=== PATIENT | female | born 1960 | race American Indian/Alaskan Native ===

== ENCOUNTER 2019-06-24 09:54 | Outpatient (CLI) | payer MEDICARE, OTHER ==
--- NOTE | 2019-06-24 10:45 | Mammography Report ---
DIGITAL DIAGNOSTIC MAMMOGRAM WITH CAD, 06/24/2019 INDICATION: ABNORMAL MAMMO R92.8. The patient presented for a stereotactic biopsy of a group of outer posterior calcifications which were identified at [facility] and described to be suspicious. TECHNIQUE: Digital left mammographic imaging was performed. Magnification views were obtained. This examination was interpreted with the benefit of Computer-aided Detection analysis. COMPARISON: 06/10/2019 and 05/19/2019 mammograms from [facility] FINDINGS: Breast Density: The breasts are heterogeneously dense, which may obscure small masses. Scattered upper outer quadrant calcifications with some layering on the lateral magnification view. N o suspicious forms or distribution. No mass or architectural distortion. IMPRESSION: Probably benign left breast calcifications which are not suitable for stereotactic biopsy at this time. Recommend 6 month follow-up left magnification views. Follow up recommendation: Short term follow up in 6 months. BI-RADS Category 3: Probably Benign. Followup in 6 months. A "normal" or negative report should not discourage follow up or biopsy of a clinically significant f inding. A written summary of these findings will be mailed to the patient. The patient will be entered into a mammography reporting system which will generate a reminder letter for the patient's next appointmen t at the appropriate interval. According to the [employer], yearly mammograms are recommended starting at age 40 and continuing as long as a woman is in good health. Breast MRI is recommended for women with an jessa roximately 20-25% or greater lifetime risk of breast cancer, including women with a strong family his tory of breast or ovarian cancer and women who have been treated for Hodgkin's disease. Signer Name: Andrzej Gutierrez MD Signed: 06/24/2019 10:41 AM Workstation Name: [id number]
== END 2019-06-24 09:55 | disposition home or self-care (01) ==
LOC: SPVWC 09:54
PROVIDERS: ATTEND Surgery
DX: R92.8 Other abnormal and inconclusive findings on diagnostic imaging of breast (principal)

== ENCOUNTER 2021-01-23 08:15 | Outpatient (CLI) | payer MEDICARE, OTHER ==
--- NOTE | 2021-01-23 09:08 | Mammography Report ---
DIGITAL DIAGNOSTIC MAMMOGRAM WITH CAD , 01/23/2021 CLINICAL INFORMATION / INDICATION: Follow-up left breast calcifications TECHNIQUE: Digital left mammographic imaging was performed. Magnification views were obtained. This examination was interpreted with the benefit of Computer-aided Detection analysis. COMPARISON: Prior mammograms including 06/28/2020, 12/08/2019, and 06/24/2019 FINDINGS: Breast Density: The breasts are extremely dense, which lowers the sensitivity of mammography. No dominant mass, suspicious calcifications or architectural distortion in the left breast. Previously noted calcifications in the upper outer quadrant of the left breast, some of which are pun ctate and some of which are layering, do not show any interval change. No new findings within the lef t breast. IMPRESSION: Probably benign findings. Stable calcifications left breast, upper outer quadrant. Please do one additional 6 month follow-up with magnification views of the left breast. This can be done wh en the patient returns for annual screening bilateral mammogram. This will prove stability of the codi cifications for 2 years. Follow up recommendation: Special View: Mag in 6 months BI-RADS Category 3: Probably Benign. Followup in 6 months. A "normal" or negative report should not discourage follow up or biopsy of a clinically significant f inding. A written summary of these findings will be mailed to the patient. The patient will be entered into a mammography reporting system which will generate a reminder letter for the patient's next appointmen t at the appropriate interval. According to the [employer], yearly mammograms are recommended starting at age 40 and continuing as long as a woman is in good health. Breast MRI is recommended for women with an jessa roximately 20-25% or greater lifetime risk of breast cancer, including women with a strong family his tory of breast or ovarian cancer and women who have been treated for Hodgkin's disease. Signer Name: Yoselin Watkins MD Signed: 01/23/2021 9:03 AM Workstation Name: [id number]
== END 2021-01-23 08:16 | disposition home or self-care (01) ==
LOC: SPVWC 08:15
PROVIDERS: ATTEND Surgery
DX: R92.1 Mammographic calcification found on diagnostic imaging of breast (principal)

== ENCOUNTER 2021-11-16 07:48 | Day surgery (SDC) | payer MEDICARE, OTHER ==
[~2021-11-16 07:48] MED LIST: ACETAMINOPHEN 500 MG TAB PO SCH; LACTATED RINGERS 1,000 ML IV SCH; MIDAZOLAM 2 MG/2 ML INJ IV NR
[2021-11-16] MEDS ORDERED: ceFAZolin/Water 2 GM/20 ML 2 GM/20 ML SYRINGE IV NR (08:00)
[2021-11-16] MEDS ORDERED: oxyCODONE /ACETAMINOPHEN 5-325MG TAB PO PRN (08:39)
[2021-11-16] MEDS ORDERED: fentaNYL 100 MCG/2 ML INJ IV PRN (08:39)
[2021-11-16] MEDS ORDERED: ONDANSETRON 4 MG/2 ML INJ IV PRN (08:39)
--- NOTE | 2021-11-16 08:39 | Anesthesia Consultation ---
Anesthesia Consult and Med Hx Date of service: 11/16/21 - Airway Anesthetic Teeth Evaluation: Good ROM Head & Neck: Adequate Mental/Hyoid Distance: Adequate Mallampati Class: Class II Intubation Access Assessment: Probably Good - Pulmonary Exam CTA: Yes - Cardiac Exam Cardiac Exam: RRR - Pre-Operative Health Status ASA Pre-Surgery Classification: ASA3 Proposed Anesthetic Plan: General - Pulmonary Hx Smoking: No Hx Respiratory Symptoms: No COPD: Yes Home Oxygen Therapy: No Hx Sleep Apnea: No (CHARLINE PRE SCREEN LOW RISK) - Cardiovascular System Hx Hypertension: No - Central Nervous System CVA: No - Endocrine Hx Renal Disease: No Hx Liver Disease: No Hx Insulin Dependent Diabetes: No Hx Non-Insulin Dependent Diabetes: No Hx Thyroid Disease: No - Other Systems Hx Obesity: No - Additional Comments Anesthesia Medical History Comments: No hx anesthetic complications. Has multiple drug allergies but reports that she tolerates ibuprofen and naproxen without issues. Also believes she has tolerated toradol in the past. Allergy to hydrocodone but has tolerated percocet.
--- NOTE | 2021-11-16 08:39 | Anesthesia Day of Surgery ---
Anesthesia Day of Surgery - Day of Surgery Patient Examined: Yes Patient H&P Reviewed: Yes Patient is NPO: Yes
[2021-11-16] MEDS ORDERED: BUPIVACAINE/PF (0.5%) 5 MG/1 ML 10 ML VIAL INFILTRATI ONE (09:57)
[2021-11-16] MEDS ORDERED: VANCOMYCIN/NS 1 GM/250 ML 1 GM/250 ML BAG IV NR (10:00)
[2021-11-16] MEDS ORDERED: LIDOCAINE MPF (2%) 20 MG/1 ML VIAL 5 ML ONE (10:09)
[2021-11-16] MEDS ORDERED: MIDAZOLAM 2 MG/2 ML INJ ONE (10:10)
[2021-11-16] MEDS ORDERED: propofoL 200 MG/20 ML VIAL IV ONE (10:10)
[2021-11-16] MEDS ORDERED: fentaNYL 100 MCG/2 ML INJ ONE (10:10)
[2021-11-16] MEDS ORDERED: KETOROLAC 30 MG/1 ML INJ ONE (10:56)
[2021-11-16] MEDS ORDERED: dexAMETHasone 20 MG/5 ML VIAL ONE (10:56)
[2021-11-16] MEDS ORDERED: ONDANSETRON 4 MG/2 ML INJ ONE (10:56)
[2021-11-16] MEDS ORDERED: SODIUM CHLORIDE 0.9% IRR 1,500 ML BOTTLE IR ONE (11:02)
--- NOTE | 2021-11-16 11:26 | Procedure Note ---
Date of procedure: 11/16/21 Pre-op diagnosis: Right carpal tunnel syndrome Post-op diagnosis: same Procedure: Right Endoscopic carpal tunnel release Procedure The patient was brought to the OR placed in the OR table in supine position following induction and intubation anesthesia the patient's right upper extremity was prepped and draped in the usual sterile manner a timeout procedure was done to identify the patient and the correct operative site next the arm was exsanguinated followed by inflation of the pneumatic tourniquet to 250 mmHg a volar incision was made at the distal wrist crease this is taken down through skin and subcutaneous using loupe magnification the superficial flexor sheath was identified next the carpal canal was entered using dilators andthe arthroscope was inserted the patient was noted to have some tightness at the carpal canal and the transverse carpal transverse carpal ligament was identified with the arthroscope in line with the fourth metacarpal the knife blade assembly was elevated the ligament was released from distal to proximal care was taken to release the ligament as completely as possible a second look was done and it appeared that the ligament was completely released at this point The wound was irrigated and was closed in a standard routine fashion. Dressings were applied the patient tolerated the procedure there were no complications she was sent to postanesthesia recovery in stable condition Anesthesia: MAC, regional Surgeon: RAHUL MACEDO (Tarun [place], [facility]) Estimated blood loss: minimal Pathology: none Condition: stable Disposition: PACU
--- NOTE | 2021-11-16 13:13 | Post Anesthesia Evaluation ---
- Post Anesthesia Evaluation Patient Participated: Yes Airway Patent: Yes Stable Respiratory Function: Yes Nausea/Vomiting: No Temp > 96.8F: Yes Pain Manageable: Yes Adequeate Hydration: Yes Anesthesia Complications: No
[2021-11-16 14:35] VITALS: BP 108/57
== END 2021-11-16 12:30 | disposition home or self-care (01) ==
LOC: OR 07:48
PROVIDERS: ATTEND Orthopaedic Surgery
DX: G56.01 Carpal tunnel syndrome, right upper limb (principal); G43.909 Migraine, unspecified, not intractable, without status migrainosus; J44.9 Chronic obstructive pulmonary disease, unspecified; F32.9 Major depressive disorder, single episode, unspecified; F41.9 Anxiety disorder, unspecified; Z98.890 Other specified postprocedural states; Z20.822 Contact with and (suspected) exposure to COVID-19; Z79.899 Other long term (current) drug therapy; Z88.0 Allergy status to penicillin; Z88.6 Allergy status to analgesic agent; Z88.8 Allergy status to other drugs, medicaments and biological substances; Z90.710 Acquired absence of both cervix and uterus
CPT/HCPCS: 29848; J1100; J1885; J2250; J2405; J2704; J3010; J3370; J3490; J7120; U0003